=== PATIENT | male | born 1955 | race Caucasian/White ===

== ENCOUNTER 2022-09-15 20:27 | Inpatient (IN) | payer MEDICARE, OTHER ==
[~2022-09-15] VITALS: Ht 170.2 cm; Wt 83.5 kg
--- NOTE | 2022-09-15 20:45 | NUR ---
[id number] FROM HOME FOR C/P AND PALPITATIONS NOTED HR 191 SELF CONVERTED EN ROUTE. PATIENT IS AAOX4. ABLE TO MAKE NEEDS KNOWN. PAIN IS STABBING IN PRESENTATION ON THE STERNAL AREA WITH SCALE OF 6/10. -SOB, NOT IN CP DISTRESS AT THE MOMENT. CAME WITH IV ON LEFT AC G18 WITH NS IV FLUID
[2022-09-15] MEDS ORDERED: ASPIRIN 325 MG TABLET PO ONE (21:30)
[2022-09-15] MEDS ORDERED: ASPIRIN 325 MG TABLET ONE (22:07)
[2022-09-15 22:17] LABS: BASOPHILS % (AUTO) 0.4 % (0.0-2.0); EOSINOPHILS % (AUTO) 1.9 % (0.0-6.0); HEMATOCRIT 38 % (39-51); HEMOGLOBIN 12.7 g/dL (13.5-17.5); LYMPHOCYTES # (AUTO) 1.6 K/uL (0.8-4.8); LYMPHOCYTES % (AUTO) 23.5 % (20.0-44.0); MEAN CORPUSCULAR HGB CONC 33 g/dl (31.0-36.0); MEAN CORPUSCULAR VOLUME 85 fL (80-96); MONOCYTES # (AUTO) 0.6 K/uL (0.1-1.30); MONOCYTES % (AUTO) 9.3 % (2.0-12.0); NEUTROPHILS # (AUTO) 4.5 K/uL (1.8-8.9); NEUTROPHILS % (AUTO) 64.9 % (43.0-81.0); PLATELET COUNT (AUTO) 198 K/uL (150-450); RED BLOOD CELL COUNT(AUTO) 4.49 MIL/uL (4.5-6.0); WHITE BLOOD COUNT (AUTO) 6.9 K/uL (4.3-11.0)
[2022-09-15 22:28] LABS: CALCIUM, SERUM 8.6 mg/dL (8.5-10.1); CARBON DIOXIDE 28 mmol/L (21-32); CHLORIDE 107 mmol/L (98-107); CREATININE 0.9 mg/dL (0.6-1.3); GLUCOSE 138 mg/dL (74-106); POTASSIUM 3.8 mmol/L (3.5-5.1); SODIUM SERUM 141 mmol/L (136-145); UREA NITROGEN, BLOOD 18 mg/dL (7-18)
[2022-09-15 22:40] LABS: ALANINE AMINOTRANSFERASE 35 U/L (12-78); ALBUMIN 3.6 g/dL (3.4-5.0); ALKALINE PHOSPHATASE 47 U/L (46-116); ASPARTATE AMINOTRANSFERASE 28 U/L (15-37); BILIRUBIN,DIRECT 0.1 mg/dL (0.0-0.2); BILIRUBIN,TOTAL 0.2 mg/dL (0.2-1.0); TOTAL PROTEIN, SERUM 6.4 g/dL (6.4-8.2)
--- NOTE | 2022-09-15 23:00 | NUR ---
SEEN BY JOCELYN BORDEN AT BEDSIDE
[2022-09-16] MEDS ORDERED: ACETAMINOPHEN 325 MG TABLET PO PRN (01:00)
[2022-09-16] MEDS ORDERED: ONDANSETRON HCL/PF 4 MG/2 ML VIAL IVP PRN (01:00)
--- NOTE | 2022-09-16 01:58 | NUR ---
COVID SWAB DONE
--- NOTE | 2022-09-16 03:17 | NUR ---
REPORT GIVEN TO TAYO STEWART/TAYO JIMENEZ.
--- NOTE | 2022-09-16 03:47 | NUR ---
TRANSFER PATIENT TO ROOM
--- NOTE | 2022-09-16 03:50 | NUR ---
LEAN SPECIALISTINSPECTING MACHINE ADJUSTER NOTE RECEIVED PATIENT FROM ER, REPORT WAS GIVEN BY TAYO SHAW. PATIENT WAS TRANSPORTED TO THE UNIT BY JOSE EDUARDO. PT AO X 4, ABLE TO MAKE HIS NEED KNOWN. FAROESE SPEAKING, BUT ABLE TO UNDERSTAND SIMPLE BULGARIAN. IV ACCESS IS AT LEFT AC #18 G WITH SL; FLUSHED WELL. IV SITE IS PATENT AND INTACT. VITAL SIGNS WERE TAKEN: BP 146/74, HR 61 BPM, TEMP 97.8, AND OXYGEN SATIATION RATE IS 97% ON RA. EXTERNAL HEART MONITOR IS PLACED ON THE PATIENT, HIS HEART RHYTHM IS SINUS RHYTHM AT 60S WITH SOME SINUS ARRHYTHMIA; AND OCCASIONALLY, SINUS GORGE AT 59. PATIENT DENIES OF HAVING ANY PAIN. NO S/S OF SOB OR DISTRESS . ORIENTED PATIENT WITH HIS ROOM; HOW TO USE CALL LIGHT AND THE PHONE. BELONGINGS INVENTORIED. SKIN ASSESSMENT COMPLETED, SKIN IS INTACT. PATIENT STATES HE'S BEEN VACCINATED WITH COVID X 3 AND PATIENT WANT'S FLU SHOT TO BE ADMINISTERED. PATIENT VERBALIZED UNDERSTANDING. CALL LIGHT WITHIN REACH, BED LOCKED IN THE LOWEST POSITION, SIDE RAILS UP X2. WILL CONTINUE TO MONITOR AND PROVIDE QUALITY CARE TO THIS PT.
[2022-09-16] MEDS: ENOXAPARIN SODIUM 40 MG/0.4 ML DISP.SYRIN SQ SCH ×2 (04:06→21:18)
[2022-09-16 06:00] LABS: BASOPHILS % (AUTO) 0.2 % (0.0-2.0); EOSINOPHILS % (AUTO) 2.6 % (0.0-6.0); HEMATOCRIT 36 % (39-51); HEMOGLOBIN 11.9 g/dL (13.5-17.5); LYMPHOCYTES # (AUTO) 1.9 K/uL (0.8-4.8); LYMPHOCYTES % (AUTO) 32.8 % (20.0-44.0); MEAN CORPUSCULAR HGB CONC 33 g/dl (31.0-36.0); MEAN CORPUSCULAR VOLUME 85 fL (80-96); MONOCYTES # (AUTO) 0.6 K/uL (0.1-1.30); MONOCYTES % (AUTO) 9.6 % (2.0-12.0); NEUTROPHILS # (AUTO) 3.2 K/uL (1.8-8.9); NEUTROPHILS % (AUTO) 54.8 % (43.0-81.0); PLATELET COUNT (AUTO) 192 K/uL (150-450); WHITE BLOOD COUNT (AUTO) 5.9 K/uL (4.3-11.0)
[2022-09-16] MEDS ORDERED: METF-441 PO (06:18)
[2022-09-16] MEDS ORDERED: AMLO5TAB4 PO (06:18)
[2022-09-16] MEDS ORDERED: GABA-532 PO (06:18)
[2022-09-16] MEDS ORDERED: PRAS10TA5 PO (06:18)
[2022-09-16] MEDS ORDERED: ASPI-1420 PO (06:18)
[2022-09-16] MEDS ORDERED: INSU100I26 SQ (06:18)
[2022-09-16] MEDS ORDERED: DAPA10TA PO (06:18)
[2022-09-16] MEDS ORDERED: ESOM40CA PO (06:18)
[2022-09-16] MEDS ORDERED: DOXA2TAB2 PO (06:18)
[2022-09-16] MEDS ORDERED: CARV3.122 PO (06:18)
[2022-09-16] MEDS ORDERED: GLIM4TAB37 PO (06:18)
[2022-09-16] MEDS ORDERED: NITR0.4T48 SL (06:18)
[2022-09-16] MEDS ORDERED: EMPA10TA PO (06:18)
[2022-09-16] MEDS ORDERED: SIMV10TA98 PO (06:18)
[2022-09-16] MEDS ORDERED: VALS160T2 PO (06:18)
[2022-09-16 06:20] LABS: CALCIUM, SERUM 8.3 mg/dL (8.5-10.1); CREATININE 0.8 mg/dL (0.6-1.3); MAGNESIUM 2.1 mg/dL (1.8-2.4); PHOSPHORUS 3.8 mg/dL (2.5-4.9); POTASSIUM 3.7 mmol/L (3.5-5.1)
--- NOTE | 2022-09-16 07:30 | NUR ---
BAR TURNER OPENING NOTES RECEIVED PATIENT AWAKE IN BED. PATIENT IS ALERT AND ORIENTED TIMES 4. NO PAIN NOTED. NO SOB NOTED. NO DISTRESS NOTED. ON TELE MONITOR READING SR 62. AMBULATORY AND BRP. IV ACCESS ON THE LAC G#18 INTACT AND PATENT. ALL NEEDS ATTENDED. ALL SAFETY MEASURES IN PLACE. BED LOCKED IN THE LOWEST POSITION. CALL LIGHT AND TABLE IN EASY REACH. SIDE RAILS UP TIMES 2. WILL CONTINUE TO MONITOR CLOSELY.
--- NOTE | 2022-09-16 07:31 | NUR ---
TRANSPORT TECHNICIAN CLOSING NOTES PATIENT IS SLEEPING IN BED. HE IS ON ROOM AIR. NO S/S OF RESPIRATORY DISTRESS NOTED. BREATHING EVEN AND UNLABORED. SAFETY MEASURES MAINTAINED: CALL LIGHT WITHIN REACH, BED LOCKED IN THE LOWEST POSITION, SIDE RAILS UP X2. 1WILL ENDORSE NEXT SHIFT NURSE FOR CONTINUE CARE.
[2022-09-16 08:11] VITALS: BP 146/74
[2022-09-16] MEDS: ASPIRIN 81 MG TAB.CHEW PO SCH (08:13)
[2022-09-16] MEDS ORDERED: DEXTROSE 50%-WATER 50 ML DISP.SYRIN IV PRN (09:00)
[2022-09-16] MEDS ORDERED: PANTOPRAZOLE 40 MG TABLET.DR PO PRN (09:00)
[2022-09-16] MEDS ORDERED: ASPIRIN EC 81 MG TABLET.DR PO SCH (09:00)
[2022-09-16] MEDS: CARVEDILOL 6.25 MG TABLET PO SCH ×2 (09:14→21:19)
[2022-09-16] MEDS: AMLODIPINE BESYLATE 5 MG TABLET PO SCH (09:15)
[2022-09-16] MEDS: GLIMEPIRIDE 4 MG TABLET PO SCH (09:16)
[2022-09-16] MEDS: METFORMIN 850 MG TABLET PO SCH ×2 (09:20→16:34)
[2022-09-16] MEDS ORDERED: PRASUGREL HCL 5 MG TABLET PO SCH (11:00)
[2022-09-16 12:11] VITALS: BP 120/74
[2022-09-16] MEDS: BLOOD SUGAR DIAGNOSTIC 1 EACH STRIP IN SCH ×3 (12:18→21:33)
[2022-09-16] MEDS: INSULIN REGULAR, HUMAN 100 UNIT/ML 3 ML VIAL SQ PRN ×3 (12:20→21:32)
--- NOTE | 2022-09-16 14:36 | NUR ---
RN NOTES REPORTED TROPONIN RESULT TO DR FRY AT 1150. NO NEW ORDER WAS GIVEN
[2022-09-16 16:36] VITALS: BP 128/62
--- NOTE | 2022-09-16 19:30 | NUR ---
FABRIC SEPARATOR OPERATOR CLOSING NOTES PATIENT AWAKE IN BED. PATIENT IS ALERT AND ORIENTED TIMES 4. NO PAIN NOTED. NO SOB NOTED. NO DISTRESS NOTED. ON TELE MONITOR READING SR 62. AMBULATORY AND BRP. IV ACCESS ON THE LAC G#18 INTACT AND PATENT.ALL DUE MEDS GIVEN ORDERED. ALL NEEDS ATTENDED. ALL SAFETY MEASURES IN PLACE. BED LOCKED IN THE LOWEST POSITION. CALL LIGHT AND TABLE IN EASY REACH. SIDE RAILS UP TIMES 2. WILL ENDORSE FOR DANK.
--- NOTE | 2022-09-16 19:44 | NUR ---
BANKING CONSULTANT OPENING NOTES; RECEIVED PATIENT IN BED AAOX4.ABLE TO MAKE NEEDS KNOWN,NO SIGN SOB/DISTRESS NOTED,NO COMPLAIN OF PAIN/DISCOMFORT AT THIS TIME,ON TELE MONITOR READING SR 68HR. IV ACCESS ON THE LAC G#18 INTACT AND PATENT. ALL SAFETY MEASURES IN PLACE. BED LOCKED IN THE LOWEST POSITION. CALL LIGHT AND TABLE IN EASY REACH. SIDE RAILS UP TIMES 2. WILL CONTINUE TO MONITOR.
[2022-09-16 20:28] VITALS: BP 134/68
[2022-09-16] MEDS ORDERED: SIMVASTATIN 10 MG TABLET PO SCH (22:00)
[2022-09-16] MEDS ORDERED: VALSARTAN 80 MG TABLET PO SCH (22:00)
[2022-09-17 04:35] VITALS: BP 138/63
--- NOTE | 2022-09-17 06:16 | NUR ---
SYRUP MACHINE LABORER CLOSING NOTES; PATIENT IN BED AAOX4.ABLE TO MAKE NEEDS KNOWN,NO SIGN SOB/DISTRESS NOTED,NO COMPLAINED OF PAIN/DISCOMFORT DURING SHIFT,DUE MEDS GIVEN ORDER,ALL NEEDS ATTENDED,ON TELE MONITOR READING SR 161HR. IV ACCESS ON THE LAC G#18 INTACT AND PATENT. ALL SAFETY MEASURES IN PLACE. BED LOCKED IN THE LOWEST POSITION. CALL LIGHT AND TABLE IN EASY REACH. SIDE RAILS UP TIMES 2. WILL ENDORSED TO NEXT SHIFT.
[2022-09-17] MEDS: INSULIN REGULAR, HUMAN 100 UNIT/ML 3 ML VIAL SQ PRN (06:44)
[2022-09-17] MEDS: BLOOD SUGAR DIAGNOSTIC 1 EACH STRIP IN SCH (06:52)
--- NOTE | 2022-09-17 07:47 | NUR ---
COAT BASTER OPENING NOTES RECEIVED PATIENT AWAKE IN BED. PATIENT IS ALERT AND ORIENTED TIMES 4. NO PAIN NOTED. NO SOB NOTED. NO DISTRESS NOTED. ON TELE MONITOR READING SR . AMBULATORY AND BRP. IV ACCESS ON THE LAC G#18 INTACT AND PATENT. ALL NEEDS ATTENDED. ALL SAFETY MEASURES IN PLACE. BED LOCKED IN THE LOWEST POSITION. CALL LIGHT AND TABLE IN EASY REACH. SIDE RAILS UP TIMES 2. WILL CONTINUE TO MONITOR CLOSELY.
[2022-09-17] MEDS: METFORMIN 850 MG TABLET PO SCH (08:14)
[2022-09-17] MEDS: GLIMEPIRIDE 4 MG TABLET PO SCH (08:14)
[2022-09-17] MEDS: CARVEDILOL 6.25 MG TABLET PO SCH (08:15)
[2022-09-17] MEDS: ASPIRIN 81 MG TAB.CHEW PO SCH (08:15)
[2022-09-17 08:16] VITALS: BP 130/61
[2022-09-17] MEDS: AMLODIPINE BESYLATE 5 MG TABLET PO SCH (08:16)
[2022-09-17] MEDS ORDERED: INFLUENZA VACCINE 2022-23 0.5 ML DISP.SYRIN IM ONE (09:00)
[2022-09-17] MEDS ORDERED: PRASUGREL HCL 5 MG TABLET PO SCH (09:00)
[2022-09-17] MEDS ORDERED: CARV6.252 PO (10:05)
--- NOTE | 2022-09-17 11:00 | NUR ---
RN NOTES DISCHARGE PATIENT IN STABLE CONDITION WITH STABLE VITAL SIGNS. NO PAIN NOTED. NO SOB NOTED. NO DISTRESS NOTED. ALL THE BELONGINGS ACCOUNTED AND SIGNED FOR. ALL THE DISCHARGE INSTRUCTIONS GIVEN TO THE PATIENT AND THE DAUGHTER. PATIENT VERBALIZED UNDERSTANDING. ALSO REMINDED FOR FOLLOW UP WITH BANKING AND FINANCE INSTRUCTOR IN A WEEK FOR ZIO PATCH OR LOOP RECORDERS. AND ALSO FOLLOW UP WITH PCP IN A WEEK. PATIENT VERBALIZED UNDERSTANDING. ALL THE BELONGINGS ACCOUNTED AND SIGNED FOR. PATIENT LEFT HOSPITAL AT 1100 AM IN STABLE CONDITION. MD AND CHARGE NURSE AWARE OF THE DISCHARGE.
== END 2022-09-17 11:00 | disposition home health service (06) | DRG 309 ==
LOC: ER 20:36 → TELE 09-16 02:58
PROVIDERS: ADMIT Nurse Practitioner Acute Care; ATTEND Nurse Practitioner Acute Care
DX: I47.1 Supraventricular tachycardia (principal); D68.59 Other primary thrombophilia; I25.10 Atherosclerotic heart disease of native coronary artery without angina pectoris; Z20.822 Contact with and (suspected) exposure to COVID-19; I10 Essential (primary) hypertension; Z95.5 Presence of coronary angioplasty implant and graft; E66.9 Obesity, unspecified; Z68.28 Body mass index [BMI] 28.0-28.9, adult; D64.9 Anemia, unspecified; Z95.1 Presence of aortocoronary bypass graft; E11.65 Type 2 diabetes mellitus with hyperglycemia
CPT/HCPCS: 36415; 71045-TC; 80048-TC; 80061-TC; 80076-TC; 82962-TC; 83735-TC; 83880; 84100-TC; 84484-TC; 85025-TC; 87081-TC; 93307-TC; C9803; G0378; J1650; J1815; Q2036